=== PATIENT | male | born 1960 | race Caucasian/White ===

== ENCOUNTER 2024-06-09 01:55 | Day surgery (SDC) | payer MEDICARE, SELFPAY ==
[2024-05-22 08:23] VITALS: BMI 25.9
[2024-06-09 06:07] VITALS: BP 108/69; PULSE 75; RESP 18; TEMP 36.1; O2SAT 98; BMI 26.6
[2024-06-09] MEDS: LACTATED RINGERS 1,000 ML 150 ML IV CONT (06:35)
[2024-06-09 06:36] LABS: Glucose Point of Care 109 mg/dl (65-105)
--- NOTE | 2024-06-09 07:21 | WPDANESEPPF ---
Anes - Initial Pre Proc Eval Procedure: Operation Date: 06/09/24 07:30 Proposed Procedures p Screening Colonoscopy - Bon Maradiaga MD Date/Time: 06/09/24 07:21 Surgeon: Bon Maradiaga MD Pre Op Diagnosis: neoplasm screening Patient Data Age: 64 Gender: M Height: 1.7 m Weight: 77.1 kg Last Vital Signs Temp 97.0 F L 06/09/24 06:07 Pulse 75 06/09/24 06:07 Resp 18 06/09/24 06:07 BP 108/69 06/09/24 06:07 Pulse Ox 98 06/09/24 06:07 O2 Del Method Room Air 06/09/24 06:07 Allergies Allergy/AdvReac Type Severity Reaction Status Date / Time No Known Allergies Allergy Mild hives Uncoded 06/09/24 06:14 Home Medications Medication Instructions Recorded Confirmed Type aspirin 81 mg tablet,delayed 81 mg PO DAILY 08/01/20 06/09/24 History release (Adult Aspirin Regimen) finasteride 5 mg tablet 5 mg PO DAILY 08/01/20 06/09/24 History empagliflozin 25 mg tablet 25 mg PO DAILY #90 tabs 02/03/24 06/09/24 Rx (Jardiance) metformin 500 mg tablet,extended 1,000 mg PO BID #360 tabs 06/08/24 06/09/24 Rx release 24 hr Laboratory Tests 06/09/24 06:27 POC Capillary Glucose 109 H mg/dl (65-105) Patient hx anesthesia problems: none Family hx anesthesia problems: none Results Review: All pre-operative results and documents have been reviewed as part of the pre-operative evaluation. [facility] Past Medical History Medical History (Updated 05/14/24 @ 10:56 by Naveen Bonds MD) Diabetes Enlarged prostate Hypertension RICHARD (obstructive sleep apnea) Screening for colon cancer Surgical History Surgical History H/O adenoidectomy History of thyroidectomy (~2017) Hx laparoscopic cholecystectomy (~2005) Family History Family History Mother Patient's mother is in good health Sibling Patient's sister is in good health Father Rheumatic heart disease Grandparent Diabetes mellitus Social History Social History (Updated 02/03/24 @ 09:53 by Sandra Villarreal [facility]) Smoking status: Never smoker Alcohol intake: never Substance use: never Do You Feel Safe in your Home?: Yes Lack of Transportation: No Lack of Food: Never True Current Housing: I Have Housing Concerned About Future Housing: No Difficulty Paying Gas/Electric Bills: No Difficulty Paying for Meds: No Currently Unemployed: No Education: Don't Know Difficulty w/ Childcare or Family Care: No Living arrangements: other Occupation/Education: occupation 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 Informed Consent: The patient's anesthetic plan and its attendant risks and benefits were discussed with the patient/family/POA. Questions were solicited and answers provided to the satisfaction of the patient/family/POA.
--- NOTE | 2024-06-09 07:23 | PM.HPGS ---
History of Present Illness History of Present Illness Consent: Risks, benefits, and alternatives have been discussed and questions answered. Patient agrees to proceed with procedure. Chief complaint: neoplasm screening Narrative: [place] Stock is a 64 year old male here for screening colonoscopy, last one 10 years ago Review of Systems Review of Systems: All systems reviewed & are unremarkable except as noted in HPI and below PMFSH Past Medical History Medical History (Updated 05/14/24 @ 10:56 by Naveen Bonds MD) Diabetes Enlarged prostate Hypertension RICHARD (obstructive sleep apnea) Screening for colon cancer Surgical History Surgical History H/O adenoidectomy History of thyroidectomy (~2017) Hx laparoscopic cholecystectomy (~2005) Family History Family History Mother Patient's mother is in good health Sibling Patient's sister is in good health Father Rheumatic heart disease Grandparent Diabetes mellitus Social History Social History (Updated 02/03/24 @ 09:53 by Sandra Villarreal [facility]) Smoking status: Never smoker Alcohol intake: never Substance use: never Do You Feel Safe in your Home?: Yes Lack of Transportation: No Lack of Food: Never True Current Housing: I Have Housing Concerned About Future Housing: No Difficulty Paying Gas/Electric Bills: No Difficulty Paying for Meds: No Currently Unemployed: No Education: Don't Know Difficulty w/ Childcare or Family Care: No Living arrangements: other Occupation/Education: occupation 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 [email or web address] 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 Home Medications and Allergies Home Medications Medication Instructions Recorded Confirmed Type aspirin 81 mg tablet,delayed 81 mg PO DAILY 08/01/20 06/09/24 History release (Adult Aspirin Regimen) finasteride 5 mg tablet 5 mg PO DAILY 08/01/20 06/09/24 History empagliflozin 25 mg tablet 25 mg PO DAILY #90 tabs 02/03/24 06/09/24 Rx (Jardiance) metformin 500 mg tablet,extended 1,000 mg PO BID #360 tabs 06/08/24 06/09/24 Rx release 24 hr Allergies Allergy/AdvReac Type Severity Reaction Status Date / Time No Known Allergies Allergy Mild hives Uncoded 06/09/24 06:14 Vital Signs Vital Signs - 24 hr 06/09/24 06:07 Temperature 97.0 F L Pulse Rate 75 Respiratory Rate 18 Blood Pressure 108/69 Pulse Oximetry 98 Oxygen Delivery Room Air Exam Const: General: comfortable and no acute distress HENMT: Face/Nose/Sinus: Normal nares present Eyes: General: appearance normal, both eyes and all related structures Neck: Neck: no JVD Resp: Auscultation: clear to auscultation bilaterally Cardio: Rate: regular rate Rhythm: regular rhythm GI: Inspection: non-distended GI Palp: Yes Soft to palpation Skin: General skin exam: normal color Neuro: General: gait normal Speech: normal speech Extrem: General: normal to inspection Psych: Mental Status: mental status grossly normal Assessment and Plan Assessment and plan (1) Screening for colon cancer: Code(s): Z12.11 - Encounter for screening for malignant neoplasm of colon Status: Acute Assessment and Plan: colonoscopy
[2024-06-09 07:44] VITALS: BP 100/63; PULSE 74; RESP 18; O2SAT 94
[2024-06-09 07:53] VITALS: BP 102/65; PULSE 73; RESP 18; O2SAT 93
[2024-06-09 08:03] VITALS: BP 103/68; PULSE 74; RESP 18; O2SAT 97
== END 2024-06-09 08:16 | disposition home or self-care (01) ==
PROVIDERS: PCP Family Medicine; Visit Provider Internal Medicine Gastroenterology
PROC: 0DJD8ZZ Inspection of Lower Intestinal Tract, Via Natural or Artificial Opening Endoscopic (ICD-10-PCS; CPT 45378; principal; 2024-06-09 07:30)
DX: Z12.11 Encounter for screening for malignant neoplasm of colon (principal); K64.8 Other hemorrhoids; K57.30 Diverticulosis of large intestine without perforation or abscess without bleeding; I10 Essential (primary) hypertension; E11.9 Type 2 diabetes mellitus without complications; G47.33 Obstructive sleep apnea (adult) (pediatric)
CPT/HCPCS: G0121; 82948; J2001; J2704; J7120